=== PATIENT | female | born 1990 | race Hispanic/Latino ===

== ENCOUNTER 2017-12-15 17:11 | Inpatient (IN) | payer MEDICAID ==
[2017-12-15] MEDS ORDERED: APRESOLINE ONE (19:19)
[2017-12-15] MEDS ORDERED: MINERAL OIL PO PRN ×2 (19:35→19:47)
[2017-12-15] MEDS ORDERED: POLYCILLIN/NS 2 GM/100 ML 2 GM/100 ML BAG IV ONE ×2 (19:35→19:47)
[2017-12-15] MEDS ORDERED: SUBLIMAZE IV PRN (19:35)
[2017-12-15] MEDS ORDERED: BRETHINE IVP PRN ×2 (19:35→19:47)
[2017-12-15] MEDS ORDERED: CERVIDIL VG ONE ×2 (19:35→20:00)
[2017-12-15] MEDS ORDERED: BRETHINE SUB-Q PRN ×2 (19:35→19:47)
[2017-12-15] MEDS ORDERED: ePHEDrine SULFATE IV PRN ×2 (19:35→19:47)
[2017-12-15] MEDS ORDERED: XYLOCAINE 2% INFILTRATI ONE ×2 (19:35→19:47)
[2017-12-15] MEDS ORDERED: TYLENOL PO PRN (19:38)
[2017-12-15] MEDS ORDERED: MAGNESIUM SULFATE 4GM/100ML 4 GM/100 ML BAG IV ONE ×2 (19:40→19:50)
[2017-12-15] MEDS ORDERED: LACTATED RINGERS 1,000 ML ONE (19:41)
[2017-12-15] MEDS ORDERED: APRESOLINE IV ONE (19:58)
[2017-12-15] MEDS ORDERED: MAGNESIUM SULFATE 40GM/1000ML 40 GM/1,000 ML BAG IV SCH (20:00)
[2017-12-15] MEDS ORDERED: LACTATED RINGERS 1,000 ML IV SCH ×2 (20:00→23:45)
[2017-12-15] MEDS ORDERED: PITOCin/NS 20 UNIT/1000ML DRIP 20 UNITS/1,000 ML BAG IV SCH ×2 (20:00)
[2017-12-15] MEDS ORDERED: PITOCin/NS 30 UNIT/500ML 30 UNITS/500 ML BAG IV SCH (20:00)
[2017-12-15] MEDS: TYLENOL PO PRN (20:10)
[2017-12-15 20:15] LABS: Hematocrit 37.6 % (30.3-42.9); Hemoglobin 12.6 gm/dl (10.1-14.3); Mean Corpuscular HGB Conc 34 % (30-34); Mean Corpuscular Hemoglobin 31 pg (28-32); Mean Corpuscular Volume 93 fl (79-97); Platelet Count 235 K/mm3 (140-440); Red Blood Count 4.06 M/mm3 (3.65-5.03); Red Cell Distribution Width 13.3 % (13.2-15.2)
[2017-12-15 20:23] LABS: Bacteria,Urine 1+ /HPF (Negative); Bilirubin,Urine NEG (Negative); Blood,Urine NEG (Negative); Color,Urine Yellow (Yellow); Hyaline Casts,Urine 1 /LPF; Mucus,Urine FEW /HPF; Urobilinogen,Urine < 2.0 mg/dL (<2.0)
[2017-12-15 20:37] LABS: Alanine Aminotransferase 11 units/L (7-56)
[2017-12-15] MEDS: MAGNESIUM SULFATE 40GM/1000ML 40 GM/1,000 ML BAG IV SCH (21:31)
--- NOTE | 2017-12-15 21:33 | Ultrasound Report ---
FINAL REPORT PROCEDURE: US OB BPP WO NON-STRESS TECHNIQUE: Sonographic evaluation for breathing, movement, tone, and amniotic fluid volume was performed. CPT 99817 HISTORY: Preeclampsia COMPARISON: No prior studies are available for comparison. FINDINGS: Amniotic fluid volume: Normal-score 2. At least one vertical pocket > 2 cm or more in vertical axis. breathing: Normal-score 2. movement: Normal-score 2. tone: Normal. Score: 8 of 8. heart rate of 132 beats per minute is detected. IMPRESSION: Biophysical profile score 8/8. heart rate 132 beats per minute.
--- NOTE | 2017-12-15 22:06 | Ultrasound Report ---
FINAL REPORT PROCEDURE: US OB FOLLOW UP TECHNIQUE: Real-time limited sonographic examination was performed for evaluation of size, position, heartbeat, fluid volume for each fetus with image documentation (1 or more fetuses). CPT 49900 HISTORY: Preeclampsia COMPARISON: No prior studies are available for comparison. FINDINGS: Single living intrauterine gestation currently visualized in the vertex presentation with a heart rate of 132 beats per minute. Subjectively the amount of amniotic fluid appears normal. The amniotic fluid index is 18 centimeters which is within normal limits. The placenta is located fundal and is grade 1. No abruption is visualized. The internal cervical os was not visualized. Detailed exam of the anatomy was not performed. Visualized images show no focal abnormalities.. MEASUREMENTS BPD: 8.7 centimeter equals 34 week 6 days. HC: 30.8 centimeter equals 34 week 2 days. AC: 31.5 centimeter equaled 35 week 3 days. FL: 6.8 centimeter equals 34 week 5 days. Estimated weight 2676 grams +/-203 grams IMPRESSION: Single living intrauterine gestation visualized currently vertex presentation. Subjectively and by amniotic fluid index the amount of amniotic fluid appears normal. Average sonographic age by today's study 34 weeks 5 days[address] This places the EDC 01/21/2018 +/-3 weeks. Detailed exam of the anatomy was not performed today as this was not requested. Estimated weight as above.
[2017-12-15] MEDS ORDERED: NARCAN 0.4 MG/1 ML IV PRN (23:12)
--- NOTE | 2017-12-15 23:22 | History and Physical Report ---
History of Present Illness Date of examination: 12/15/17 Date of admission: 12/15/17 20:12 Chief complaint: headache, sent from office with elevated BP, contractions History of present illness: This is a 27 yo EDC 01/05/18 at 37 weeks. She was sent from office for elevated BP with intention of IOL on Monday for preeclampsia. She has been followed for the last couple of weeks with elevated BP with labs per patient reported as neg. She c/o contractions for the last couple of days. No report of bleeding nor leaking. No vaginal bleeding. Good fm. She reports headache 12/12. Past History Past Medical History: asthma Past Surgical History: other (tonsillectomy at childhood) Family/Genetic History: diabetes, hypertension (Father) Social history: . denies: smoking, alcohol abuse, prescription drug abuse - Obstetrical History Expected Date of Delivery: 01/05/18 Actual Gestation: 37 Week(s) 0 Day(s) : 1 Para: 0 Hx # Term Pregnancies: 0 Number of Pregnancies: 0 Spontaneous Abortions: 0 Induced : 0 Number of Living Children: 0 Medications and Allergies Allergies Allergy/AdvReac Type Severity Reaction Status Date / Time No Known Allergies Allergy Unverified 12/15/17 18:36 Home Medications Medication Instructions Recorded Confirmed Last Taken Type Pnv,Calcium 72/Iron/Folic Acid 1 cap PO DAILY 12/15/17 12/15/17 1 Day Ago History [Pnv Plus Multivit Tab] ~12/14/17 Active Meds: Active Medications Acetaminophen (Tylenol) 1,000 mg PO Q6H PRN PRN Reason: Pain, Mild (1-3) Ephedrine Sulfate (Ephedrine Sulfate) 10 mg IV Q2M PRN PRN Reason: Hypotension Fentanyl (Sublimaze) 100 mcg IV Q2H PRN PRN Reason: Labor Pain Ampicillin Sodium (Ampicillin/Ns 1 Gm/50 Ml) 1 gm in 50 mls @ 100 mls/hr IV Q4HR AURELIA; Protocol Lactated Ringer's (Lactated Ringers) 1,000 mls @ 125 mls/hr IV DIRECT AURELIA Oxytocin/Sodium Chloride (Pitocin/Ns 20 Unit/1000ml Drip) 20 units in 1,000 mls @ 125 mls/hr IV DIRECT AURELIA Magnesium Sulfate (Magnesium Sulfate 40gm/1000ml) 40 gm in 1,000 mls @ 50 mls/ hr IV DIRECT AURELIA Last Admin: 12/15/17 21:31 Dose: 2 gm/hr, 50 mls/hr Mineral Oil (Mineral Oil) 30 ml PO QHS PRN PRN Reason: Constipation Terbutaline Sulfate (Brethine) 0.25 mg SUB-Q ONCE PRN PRN Reason: Hyperstimulation/Hypertonicity Terbutaline Sulfate (Brethine) 0.25 mg IVP ONCE PRN PRN Reason: Hyperstimulation/Hypertonicity Review of Systems All systems: negative Eyes: blurred vision Genitourinary: contractions Neurological: headaches - Vital Signs Vital signs: Vital Signs Pulse Pulse Ox 79 95 12/15/17 18:38 12/15/17 18:38 Temp Pulse Resp BP Pulse Ox 97.8 F 85 16 147/77 98 12/15/17 21:30 12/15/17 22:54 12/15/17 21:30 12/15/17 22:54 12/15/17 22:04 - Physical Exam Breasts: Positive: deferred Cardiovascular: Regular rate, Normal S1 Lungs: Positive: Clear to auscultation, Normal air movement Abdomen: Positive: normal appearance, soft, normal bowel sounds. Negative: distention, tenderness, guarding Genitourinary (Female): Positive: normal external genitalia, normal perenium Vulva: both: normal Vagina: Positive: normal moisture Uterus: Positive: normal size Anus/Rectum: Positive: normal perianal skin Extremities: Positive: normal. Negative: tenderness Deep Tendon Reflex Grade: Normal +2 - Obstetrical FHR: category 1 Cervical Dilatation: 1 Cervical Effacement Percentage: 50 station: -2 Uterine Contraction Pattern: Regular Uterine Tone Measurement Phase: Contraction Uterine Contraction Intensity: Mild Results Result Diagrams: 12/15/17 18:45 12/15/17 18:45 Abnormal lab results 12/15/17 12/15/17 Range/Units 18:45 18:45 WBC 15.4 H (4.5-11.0) K/mm3 Creatinine 0.5 L (0.7-1.2) mg/dL Lactate Dehydrogenase 257 H (91-180) units/L All other labs normal. Ultrasound: report reviewed Assessment and Plan A/P IUP 37 weeks Preeclampsia unknown GBS admission and labs [facility] [place] 4/2 amp for GBS IOl with cervidil expect vaginal delivery
[2017-12-15] MEDS ORDERED: AMPICILLIN/NS 1 GM/50 ML 1 GM/50 ML BAG IV SCH (23:37)
[2017-12-16] MEDS: LACTATED RINGERS 1,000 ML IV SCH ×2 (00:10→14:53)
[2017-12-16] MEDS: AMPICILLIN/NS 1 GM/50 ML 1 GM/50 ML BAG IV SCH ×2 (02:26→06:52)
[2017-12-16] MEDS: SUBLIMAZE IV PRN (02:27)
[2017-12-16] MEDS: TYLENOL PO PRN ×2 (05:09→12:32)
[2017-12-16] MEDS: NORMODYNE PO SCH ×2 (05:09→09:54)
[2017-12-16] MEDS: PITOCin/NS 30 UNIT/500ML 30 UNITS/500 ML BAG IV SCH (12:30)
[2017-12-16] MEDS: MAGNESIUM SULFATE 40GM/1000ML 40 GM/1,000 ML BAG IV SCH (17:14)
--- NOTE | 2017-12-16 19:54 | Progress Note ---
Assessment and Plan A/P IUP 37+1 weeks Preeclampsia unknown GBS s/p one dose of cervidil and low dose pitocin advanced from 1 to 2cm will allow to eat with continuation of mag pree labs today nst cat 1 continued close monitor to fetus and maternal status will continue with IOL Subjective - Subjective Date of service: 12/16/17 Principal diagnosis: Preeclampsia at 37 weeks Interval history: This is a 27 yo EDC 01/05/18 at 37 weeks. She was sent from office for elevated BP with intention of IOL on Monday for preeclampsia. She has been followed for the last couple of weeks with elevated BP with labs per patient reported as neg. She c/o contractions for the last couple of days. No report of bleeding nor leaking. No vaginal bleeding. Good fm. She reports headache 12/12. Patient reports: loss of fluid, vaginal bleeding, movement normal, contractions, no new complaints Objective - Vital Signs Vital Signs: Vital Signs - 12hr 12/16/17 12/16/17 12/16/17 07:54 08:25 08:56 Temperature Pulse Rate 75 75 79 Respiratory Rate Blood Pressure 109/67 125/77 121/64 12/16/17 12/16/17 12/16/17 09:25 09:54 09:55 Temperature Pulse Rate 81 80 80 Respiratory Rate Blood Pressure 132/76 131/84 131/84 12/16/17 12/16/17 12/16/17 10:26 10:54 11:26 Temperature Pulse Rate 78 90 76 Respiratory Rate Blood Pressure 135/89 134/73 121/74 12/16/17 12/16/17 12/16/17 11:56 12:24 12:32 Temperature 97.2 F L Pulse Rate 83 79 Respiratory 18 Rate Blood Pressure 116/67 125/67 12/16/17 12/16/17 12/16/17 12:54 13:24 13:55 Temperature Pulse Rate 85 85 82 Respiratory Rate Blood Pressure 125/77 144/79 131/73 12/16/17 12/16/17 12/16/17 14:24 14:55 15:25 Temperature Pulse Rate 84 82 76 Respiratory Rate Blood Pressure 133/76 131/76 123/75 12/16/17 12/16/17 12/16/17 15:55 16:25 16:55 Temperature Pulse Rate 77 77 73 Respiratory Rate Blood Pressure 128/77 136/77 127/69 12/16/17 12/16/17 12/16/17 17:25 17:56 18:20 Temperature 97.0 F L Pulse Rate 86 86 Respiratory 16 Rate Blood Pressure 154/88 152/85 12/16/17 12/16/17 12/16/17 18:26 18:30 18:56 Temperature Pulse Rate 80 80 77 Respiratory Rate Blood Pressure 162/88 152/82 147/82 12/16/17 19:25 Temperature Pulse Rate 75 Respiratory Rate Blood Pressure 143/82 - Exam Breasts: normal Cardiovascular: Regular rate, Normal S1 Lungs: Clear to auscultation, Normal air movement Abdomen: Present: normal appearance, soft, normal bowel sounds. Absent: distention, tenderness Vulva: both: normal Uterus: Present: normal FHR: category 1 Cervical Dilatation: 2 Cervical Effacement Percentage: 50 station: -2 Uterine Contraction Pattern: Irregular Uterine Tone Measurement Phase: Contraction Uterine Contraction Intensity: Mild Extremities: normal Deep Tendon Reflex Grade: Normal +2 - Labs Labs: Abnormal Labs 12/15/17 12/15/17 12/16/17 18:45 18:45 03:48 WBC 15.4 H Creatinine 0.5 L Magnesium 4.70 H Lactate Dehydrogenase 257 H 12/16/17 13:53 WBC Creatinine Magnesium 5.60 H Lactate Dehydrogenase Laboratory Results - last 24 hr 12/15/17 12/15/17 12/15/17 18:45 18:45 18:45 WBC 15.4 H RBC 4.06 Hgb 12.6 Hct 37.6 MCV 93 MCH 31 MCHC 34 RDW 13.3 Plt Count 235 Creatinine Estimated GFR Uric Acid Magnesium AST ALT Lactate Dehydrogenase Urine Color Yellow Urine Turbidity Clear Urine pH 7.0 Ur Specific [place] 1.014 Urine Protein 100 mg/dl Urine Glucose (UA) Neg Urine Ketones Neg Urine Blood Neg Urine Nitrite Neg Urine Bilirubin Neg Urine Urobilinogen < 2.0 Ur Leukocyte Esterase Tr Urine WBC (Auto) 2.0 Urine RBC (Auto) 1.0 U Epithel Cells (Auto) 4.0 Urine Bacteria (Auto) 1+ Hyaline Casts 1 Urine Mucus Few RPR Nonreactive Blood Type Antibody Screen 12/15/17 12/15/17 12/16/17 18:45 18:45 03:48 WBC RBC Hgb Hct MCV MCH MCHC RDW Plt Count Creatinine 0.5 L Estimated GFR > 60 Uric Acid 6.0 Magnesium 4.70 H AST 20 ALT 11 Lactate Dehydrogenase 257 H Urine Color Urine Turbidity Urine pH Ur Specific [place] Urine Protein Urine Glucose (UA) Urine Ketones Urine Blood Urine Nitrite Urine Bilirubin Urine Urobilinogen Ur Leukocyte Esterase Urine WBC (Auto) Urine RBC (Auto) U Epithel Cells (Auto) Urine Bacteria (Auto) Hyaline Casts Urine Mucus RPR Blood Type O POSITIVE Antibody Screen Negative 12/16/17 13:53 WBC RBC Hgb Hct MCV MCH MCHC RDW Plt Count Creatinine Estimated GFR Uric Acid Magnesium 5.60 H AST ALT Lactate Dehydrogenase Urine Color Urine Turbidity Urine pH Ur Specific [place] Urine Protein Urine Glucose (UA) Urine Ketones Urine Blood Urine Nitrite Urine Bilirubin Urine Urobilinogen Ur Leukocyte Esterase Urine WBC (Auto) Urine RBC (Auto) U Epithel Cells (Auto) Urine Bacteria (Auto) Hyaline Casts Urine Mucus RPR Blood Type Antibody Screen
[2017-12-16] MEDS ORDERED: CERVIDIL VG ONE (21:19)
[2017-12-16 21:32] LABS: Hematocrit 37.5 % (30.3-42.9); Hemoglobin 12.5 gm/dl (10.1-14.3); Mean Corpuscular HGB Conc 33 % (30-34); Mean Corpuscular Hemoglobin 32 pg (28-32); Mean Corpuscular Volume 95 fl (79-97); Platelet Count 235 K/mm3 (140-440); Red Blood Count 3.95 M/mm3 (3.65-5.03); Red Cell Distribution Width 13.7 % (13.2-15.2)
[2017-12-16 21:57] LABS: Alanine Aminotransferase 10 units/L (7-56); Uric Acid 6.2 mg/dL (3.5-7.6)
[2017-12-17] MEDS: NORMODYNE PO SCH ×3 (00:36→22:46)
[2017-12-17] MEDS: TYLENOL PO PRN (03:18)
[2017-12-17] MEDS: LACTATED RINGERS 1,000 ML IV SCH ×2 (03:53→16:05)
--- NOTE | 2017-12-17 07:12 | Progress Note ---
Assessment and Plan A/P IUP 37+2 weeks Preeclampsia unknown GBS s/p one dose of 2 cervidil and low dose pitocin advanced from 1 to 2cm nst cat 1 continued close monitor to fetus and maternal status will continue with IOL cervidil out at 1030 and reevalutate continuation of pitocin Subjective - Subjective Date of service: 12/17/17 Principal diagnosis: Preeclampsia at 37 weeks Interval history: This is a 27 yo EDC 01/05/18 at 37 weeks. She was sent from office for elevated BP with intention of IOL on Monday for preeclampsia. She has been followed for the last couple of weeks with elevated BP with labs per patient reported as neg. She c/o contractions for the last couple of days. No report of bleeding nor leaking. No vaginal bleeding. Good fm. She reports headache 12/12. Patient reports: loss of fluid, vaginal bleeding, movement normal, contractions, no new complaints Objective - Vital Signs Vital Signs: Vital Signs - 12hr 12/16/17 12/16/17 12/16/17 19:25 19:50 19:55 Temperature 98.2 F Pulse Rate 75 76 76 Respiratory 18 Rate Blood Pressure 143/82 150/81 Blood Pressure 150/81 [Left] 12/16/17 12/16/17 12/16/17 20:27 21:21 22:21 Temperature Pulse Rate 80 87 78 Respiratory Rate Blood Pressure 150/84 145/86 149/89 Blood Pressure [Left] 12/16/17 12/17/17 12/17/17 23:21 00:21 00:36 Temperature Pulse Rate 80 80 80 Respiratory Rate Blood Pressure 153/85 133/78 133/78 Blood Pressure [Left] 12/17/17 12/17/17 12/17/17 01:21 02:21 03:21 Temperature Pulse Rate 81 86 73 Respiratory Rate Blood Pressure 135/76 138/81 147/85 Blood Pressure [Left] 12/17/17 12/17/17 12/17/17 04:22 05:21 06:21 Temperature Pulse Rate 75 85 67 Respiratory Rate Blood Pressure 143/85 133/75 137/79 Blood Pressure [Left] - Exam Breasts: normal Cardiovascular: Regular rate, Normal S1 Lungs: Clear to auscultation, Normal air movement Abdomen: Present: normal appearance, soft, normal bowel sounds. Absent: distention, tenderness Uterus: Present: normal FHR: category 1 Cervical Dilatation: 2 Cervical Effacement Percentage: 60 station: -2 Uterine Contraction Pattern: Irregular Uterine Tone Measurement Phase: Contraction Uterine Contraction Intensity: Mild Extremities: normal Deep Tendon Reflex Grade: Normal +2 - Labs Labs: Abnormal Labs 12/15/17 12/15/17 12/16/17 18:45 18:45 03:48 WBC 15.4 H Creatinine 0.5 L Magnesium 4.70 H Lactate Dehydrogenase 257 H 12/16/17 12/16/17 12/16/17 13:53 20:47 20:47 WBC 15.1 H Creatinine Magnesium 5.60 H 5.50 H Lactate Dehydrogenase 12/16/17 12/17/17 20:47 05:20 WBC Creatinine 0.5 L Magnesium 5.60 H Lactate Dehydrogenase 224 H Laboratory Results - last 24 hr 12/15/17 12/16/17 12/16/17 18:45 13:53 20:47 WBC RBC Hgb Hct MCV MCH MCHC RDW Plt Count Creatinine Estimated GFR Uric Acid Magnesium 5.60 H 5.50 H AST ALT Lactate Dehydrogenase RPR Nonreactive 12/16/17 12/16/17 12/17/17 20:47 20:47 05:20 WBC 15.1 H RBC 3.95 Hgb 12.5 Hct 37.5 MCV 95 MCH 32 MCHC 33 RDW 13.7 Plt Count 235 Creatinine 0.5 L Estimated GFR > 60 Uric Acid 6.2 Magnesium 5.60 H AST 19 ALT 10 Lactate Dehydrogenase 224 H RPR
[2017-12-17] MEDS: PITOCin/NS 30 UNIT/500ML 30 UNITS/500 ML BAG IV SCH (10:48)
[2017-12-17] MEDS: MAGNESIUM SULFATE 40GM/1000ML 40 GM/1,000 ML BAG IV SCH (12:50)
[2017-12-17] MEDS: SUBLIMAZE IV PRN (16:00)
[2017-12-17] MEDS ORDERED: CYTOTEC VG ONE (20:00)
[2017-12-17] MEDS ORDERED: AMBIEN PO PRN (22:00)
[2017-12-18] MEDS: PITOCin/NS 30 UNIT/500ML 30 UNITS/500 ML BAG IV SCH (01:52)
[2017-12-18] MEDS: LACTATED RINGERS 1,000 ML IV SCH (05:38)
[2017-12-18] MEDS: AMPICILLIN/NS 1 GM/50 ML 1 GM/50 ML BAG IV SCH ×2 (06:13→10:39)
[2017-12-18] MEDS: SUBLIMAZE IV PRN (06:32)
[2017-12-18] MEDS: MAGNESIUM SULFATE 40GM/1000ML 40 GM/1,000 ML BAG IV SCH (08:57)
[2017-12-18] MEDS ORDERED: NARCAN 2 MG/2 ML IV PRN (09:52)
[2017-12-18] MEDS ORDERED: ePHEDrine SULFATE IV PRN (09:52)
--- NOTE | 2017-12-18 09:52 | Anesthesia Consultation ---
Anesthesia Consult and Med Hx Date of service: 12/18/17 - Airway Anesthetic Teeth Evaluation: Good ROM Head & Neck: Adequate Mental/Hyoid Distance: Adequate Mallampati Class: Class II Intubation Access Assessment: Good - Pulmonary Exam CTA: Yes - Cardiac Exam Cardiac Exam: RRR - Pre-Operative Health Status ASA Pre-Surgery Classification: ASA3 Proposed Anesthetic Plan: Epidural - Pulmonary Hx Asthma: Yes COPD: No Hx Pneumonia: No - Cardiovascular System Hx Hypertension: Yes - Central Nervous System Hx Seizures: No Hx Psychiatric Problems: No - Endocrine Hx Renal Disease: No Hx End Stage Renal Disease: No Hx Hypothyroidism: No Hx Hyperthyroidism: No - Hematic Hx Anemia: No Hx Sickle Cell Disease: No - Other Systems Hx Alcohol Use: No
[2017-12-18] MEDS ORDERED: fentaNYL-BUPIV 2 MCG/ML-0.125% 200 MCG/100 ML BAG EPIDURAL SCH (10:00)
[2017-12-18] MEDS: NORMODYNE PO SCH ×2 (11:21→22:37)
--- NOTE | 2017-12-18 14:30 | Procedure Note ---
OB Delivery Note - Delivery Date of Delivery: 12/18/17 Surgeon: KAROLINE PAUL Estimated blood loss: 200cc - Vaginal Delivery presentation: vertex Delivery position: OA Intrapartum events: gestational hypertension Delivery induction: oxytocin Delivery augmentation: rupture of membranes Delivery monitor: external FHT, external uterine Route of delivery: Delivery placenta: spontaneous Delivery cord: 3 umbilical vessels Episiotomy: none Delivery laceration: none Anesthesia: epidural Delivery comments: Viable male delivered over intact perineum with apgars 8,9. and weight 5 pounds 14 ounces. Placenta delivered spontaneously and intact with 3vc. No lacerations. Patient tolerated procedure well. Excellent hemostasis. - Infant A at 1 minute: 7 at 5 minutes: 9 Infant Gender: Male (5 pounds 14 ounces)
[2017-12-18] MEDS ORDERED: MILK OF MAGNESIA PO PRN (17:24)
[2017-12-18] MEDS ORDERED: BENADRYL PO PRN (17:24)
[2017-12-18] MEDS ORDERED: TYLENOL PO PRN (17:24)
[2017-12-18] MEDS ORDERED: PHENERGAN PO PRN (17:24)
[2017-12-18] MEDS ORDERED: PHENERGAN PR PRN (17:24)
[2017-12-18] MEDS ORDERED: SODIUM CHLORIDE FLUSH SYRINGE 10 ML IV NR (17:24)
[2017-12-18] MEDS ORDERED: ZOFRAN IV PRN (17:24)
[2017-12-18] MEDS ORDERED: LANSINOH TP PRN (17:24)
[2017-12-18] MEDS ORDERED: TUCKS PAD TP PRN (17:24)
[2017-12-18] MEDS ORDERED: DULCOLAX PR PRN (17:24)
[2017-12-18] MEDS: MOTRIN PO SCH ×2 (17:37→23:03)
[2017-12-18] MEDS: NORCO 5/325 PO PRN (17:38)
[2017-12-18] MEDS: COLACE PO SCH (22:38)
[2017-12-19] MEDS: MAGNESIUM SULFATE 40GM/1000ML 40 GM/1,000 ML BAG IV SCH (01:33)
[2017-12-19] MEDS: NORCO 5/325 PO PRN ×4 (01:38→23:05)
[2017-12-19] MEDS ORDERED: PITOCin/NS 20 UNIT/1000ML DRIP 20 UNITS/1,000 ML BAG IV SCH (02:00)
[2017-12-19 06:58] LABS: Hematocrit 33.1 % (30.3-42.9); Hemoglobin 11.1 gm/dl (10.1-14.3)
[2017-12-19] MEDS: MOTRIN PO SCH ×2 (08:44→14:30)
[2017-12-19] MEDS: PRENATAL VITAMIN PO SCH (10:41)
[2017-12-19] MEDS: COLACE PO SCH ×2 (10:41→23:07)
[2017-12-19] MEDS: NORMODYNE PO SCH ×2 (10:42→23:07)
[2017-12-19] MEDS ORDERED: LACTATED RINGERS 1,000 ML ONE (14:59)
--- NOTE | 2017-12-19 23:32 | Progress Note ---
Assessment and Plan PPD 1 s/p after induction for preeclampsia. Patient began to diuresis this afternoon and mag was discontinued at 1800. Blood pressures are in moderate control. "Continue current regimen. Subjective - Subjective Date of service: 12/19/17 Principal diagnosis: Preeclampsia at 37 weeks Patient reports: appetite normal, voiding normally, pain well controlled, ambulating normally : doing well Objective - Vital Signs Latest vital signs: Vital Signs Temp Pulse Resp BP BP Pulse Ox 12/19/17 23:07 69 143/84 12/19/17 23:05 18 12/19/17 17:54 98.0 F 71 20 153/81 95 12/19/17 15:59 98.5 F 70 20 158/96 96 12/19/17 13:59 98.9 F 75 20 147/85 93 12/19/17 12:01 98.8 F 74 20 138/78 92 12/19/17 11:55 98.5 F 76 20 117/68 100 12/19/17 10:42 78 136/78 12/19/17 10:37 99.1 F 76 20 136/78 95 12/19/17 08:10 98.3 F 79 18 144/87 95 12/19/17 04:10 98.2 F 82 18 123/73 12/19/17 02:38 16 12/19/17 02:10 98.4 F 63 18 138/73 12/19/17 01:38 18 12/19/17 00:03 18 12/19/17 00:00 98.6 F 74 18 116/65 96 Intake and Output 12/19/17 12/19/17 12/20/17 14:59 22:59 06:59 Intake Total 1205 240 Output Total 2800 1999 Balance -1595 -1760 Intake: IV 125 Left Proximal Port Hand 125 Oral 600 240 Intake, Free Water 480 Output: Urine 2800 1999 Indwelling Catheter 2800 1999 Other: Total, Intake Amount 240 240 Total, Output Amount 800 1999 - Exam Breasts: Present: deferred Cardiovascular: Present: Regular rate, Normal S1 Lungs: Present: Clear to auscultation, Normal air movement Abdomen: Present: normal appearance, soft, normal bowel sounds Uterus: Present: normal, firm, fundal height below umbilicus Extremities: Present: edema Deep Tendon Reflex Grade: Normal +2 - Labs Labs: Abnormal lab results 12/19/17 Range/Units 05:37 Magnesium 5.30 H (1.7-2.3) mg/dL
[2017-12-20] MEDS: NORCO 5/325 PO PRN (05:00)
--- NOTE | 2017-12-20 10:12 | Progress Note ---
Assessment and Plan PPD 2 s/p after induction for preeclampsia. Patient has been off mag since yesterday evening. Blood pressure still fluctuating Subjective - Subjective Date of service: 12/20/17 Principal diagnosis: Preeclampsia at 37 weeks Patient reports: appetite normal, voiding normally, pain well controlled, ambulating normally [place]: doing well Objective - Vital Signs Latest vital signs: Vital Signs Temp Pulse Resp BP BP Pulse Ox 12/20/17 05:00 18 12/20/17 04:30 98.4 F 68 18 136/78 12/20/17 00:00 98.1 F 70 18 148/88 12/19/17 23:07 69 143/84 12/19/17 23:05 18 12/19/17 20:15 98.9 F 76 18 136/82 12/19/17 17:54 98.0 F 71 20 153/81 95 12/19/17 15:59 98.5 F 70 20 158/96 96 12/19/17 13:59 98.9 F 75 20 147/85 93 12/19/17 12:01 98.8 F 74 20 138/78 92 12/19/17 11:55 98.5 F 76 20 117/68 100 12/19/17 10:42 78 136/78 12/19/17 10:37 99.1 F 76 20 136/78 95 Intake and Output 12/19/17 12/20/17 12/20/17 22:59 06:59 14:59 Intake Total 240 240 Output Total 2000 800 Balance -1760 -560 Intake: Oral 240 240 Output: Urine 1999 800 Indwelling Catheter 1999 Void 800 Other: Total, Intake Amount 240 240 Total, Output Amount 1999 800 # Voids Void 2 - Exam Breasts: Present: deferred Cardiovascular: Present: Regular rate, Normal S1, Normal S2 Lungs: Present: Clear to auscultation, Normal air movement Abdomen: Present: normal appearance, soft, normal bowel sounds Vulva: both: normal Uterus: Present: normal, firm, fundal height below umbilicus Extremities: Present: normal Deep Tendon Reflex Grade: Normal +2
--- NOTE | 2017-12-20 10:16 | Discharge Summary ---
Providers - Providers Date of Admission: 12/15/17 20:12 Date of discharge: 12/20/17 Attending physician: KAROLINE PAUL Primary care physician: KAROLINE PAUL Hospitalization Reason for admission: induction of labor, other (preeclampsia) Delivery: Episiotomy: none Laceration: none Other procedures: none complications: none Discharge diagnosis: IUP at term delivered [place] baby: male Hospital course: patient had diuresis and decrease in blood pressure after delivery with administration of magnesium Condition at discharge: Good Disposition: [id number]-01 TO HOME OR SELFCARE Plan - Discharge Medications Prescriptions: HYDROcodone/APAP 5-325 [[place] 5-325 mg TAB] 2 each PO Q6H PRN #30 tablet PRN Reason: Pain, Moderate (4-6) Ibuprofen [Motrin 600 MG tab] 600 mg PO Q6H #30 tablet Labetalol [Normodyne TAB] 100 mg PO BID #60 tablet - Provider Discharge Summary Activity: routine, no sex for 6 weeks, no heavy lifting 4 weeks, no strenuous exercise Diet: routine Instructions: routine Additional instructions: [] Smoking cessation referral if applicable(refer to patient education folder for contact #) [] Refer to [facility]'s [facility] Booklet Call your doctor immediately for: * Fever > 100.5 * Heavy vaginal bleeding ( >1 pad per hour) * Severe persistent headache * Shortness of breath * Reddened, hot, painful area to leg or breast * Drainage or odor from incision. * Keep incision clean and dry at all times and follow doctor's instructions regarding bathing/showering - Follow up plan Follow up: KAROLINE PAUL MD [Primary Care Provider] - 7 Days
[2017-12-20] MEDS: PRENATAL VITAMIN PO SCH (10:44)
[2017-12-20] MEDS: COLACE PO SCH (10:45)
[2017-12-20] MEDS: NORMODYNE PO SCH (10:45)
[2017-12-20] MEDS: MOTRIN PO SCH (10:45)
[2017-12-20 12:24] VITALS: BP 149/72
== END 2017-12-20 13:15 | disposition home or self-care (01) | DRG 774 ==
LOC: EDSTATUS 18:03 → TRG 18:14 → LD 20:12 → OB 12-18 17:07
PROVIDERS: ADMIT Obstetrics & Gynecology; ATTEND Obstetrics & Gynecology
PROC: 10E0XZZ Delivery of Products of Conception, External Approach (ICD-10-PCS; principal; 2017-12-18)
PROC: 3E033VJ Introduction of Other Hormone into Peripheral Vein, Percutaneous Approach (ICD-10-PCS; 2017-12-18)
PROC: 3E0R3BZ Introduction of Anesthetic Agent into Spinal Canal, Percutaneous Approach (ICD-10-PCS; 2017-12-18)
PROC: 00HU33Z Insertion of Infusion Device into Spinal Canal, Percutaneous Approach (ICD-10-PCS; 2017-12-18)
DX: O14.94 Unspecified pre-eclampsia, complicating childbirth (principal); Z3A.37 37 weeks gestation of pregnancy; Z37.0 Single live birth; Z83.3 Family history of diabetes mellitus; Z82.49 Family history of ischemic heart disease and other diseases of the circulatory system; O13.4 Gestational [pregnancy-induced] hypertension without significant proteinuria, complicating childbirth
CPT/HCPCS: 36415; 59025; 59200; 76816; 76819; 81001; 82565; 83615; 83735; 84450; 84460; 84550; 85014; 85018; 85027; 86592; 86850; 86900; 86901; 88307; 96360; 96365; 96367; 99211; G0463; J0290; J0360; J2590; J3010; J3475; J7120